=== PATIENT | female | born 1975 | race Hispanic/Latino ===

== ENCOUNTER → 2024-09-28 | Outpatient (CLI) | payer BC, OTHER ==
--- NOTE | 2024-09-28 14:50 | HMCIMG ---
US ARTERIAL BILAT LOW EXT DUPL REASON: Peripheral vascular disease COMPARISON: None TECHNIQUE: Bilateral lower extremity arterial Doppler evaluation was performed with spectral analysis and color flow imaging. FINDINGS: Right leg shows normal triphasic waveforms from common femoral artery through the popliteal artery. Posterior tibial and dorsalis pedis waveforms are also triphasic, but patient waveform is noted in the anterior tibial. Flow velocities are preserved throughout. Left leg shows normal triphasic waveforms common femoral artery through the popliteal artery. Posterior tibial artery is triphasic. Anterior tibial is biphasic. There is increased flow velocity in the dorsalis pedis artery at 239 cm/s consistent with a focal 50-80% stenosis. IMPRESSION: 1. Mild arterial inflow occlusion left ankle at the anterior tibial and dorsalis pedis level. 2. Otherwise unremarkable bilateral lower extremity arterial Doppler vascular evaluation.
== END | disposition home or self-care (01) ==
LOC: RAH 09:00
PROVIDERS: ATTEND Family Medicine
DX: I77.1 Stricture of artery (principal); I73.9 Peripheral vascular disease, unspecified
CPT/HCPCS: 93925

== ENCOUNTER → 2024-12-17 | Outpatient (CLI) | payer OTHER ==
--- NOTE | 2024-12-18 17:07 | HMCIMG ---
EXAM: CT Cardiac calcium scoring. CLINICAL HISTORY: Screening. TECHNIQUE: Thin collimated axial CT cardiac images were obtained. A CT scan is done according to ALARA (As Low As Reasonably Achievable). CONTRAST: None. COMPARISON: None provided. FINDINGS: Calcium Score: VESSEL Number of lesions Volume mm3 Equi. Mass/mg Calcium score LM 1 11.3 - 14.9 LAD 6 48.8 - 53.7 LCX 2 29.0 - 35.3 RCA 9 171.5 - 169.3 Total 18 260.6 - 273.3 IMPRESSION: The total calcium score is 273.3. 99th percentile. /[place]
== END | disposition home or self-care (01) ==
LOC: RAH 12:36
PROVIDERS: ATTEND Family Medicine
DX: Z13.6 Encounter for screening for cardiovascular disorders (principal)
CPT/HCPCS: 75571